=== PATIENT | female | born 1990 | race Two or more races ===

== ENCOUNTER 2025-01-17 05:31 | Inpatient (IN) | payer MEDICAID ==
[~2025-01-17 05:31] MED LIST: Lactated Ringers 1,000 ML IV SCH; Sodium Chloride 0.9% 10 ML Syringe FLUSH PRN; Sodium Chloride 0.9% 10 ML Syringe FLUSH SCH
[2025-01-17] MEDS ORDERED: Oxytocin/0.9 % Sodium Chloride 30 UNIT/500 ML BAG IV SCH ×2 (06:00→08:00)
[2025-01-17 06:06] LABS: BASOPHILS ABSOLUTE AUTO 0.0 K/mm3 (0.0-0.2); BASOPHILS PERCENT AUTO 0.4 % (0.0-1.0); EOSINOPHILS ABSOLUTE AUTO 0.1 K/mm3 (0.0-0.4); EOSINOPHILS PERCENT AUTO 1.4 % (0.0-6.0); IMMATURE GRAN ABSOLUTE AUTO 0.03 K/mm3 (0.00-0.05); IMMATURE GRAN PERCENT AUTO 0.4 % (0.0-0.4); LYMPHOCYTES ABSOLUTE AUTO 2.2 K/mm3 (1.0-4.8); LYMPHOCYTES PERCENT AUTO 27.9 % (24.0-44.0); MEAN PLATELET VOLUME 13.0 fl (9.4-12.3); MONOCYTES ABSOLUTE AUTO 0.5 K/mm3 (0.0-0.8); MONOCYTES PERCENT AUTO 6.4 % (0.0-8.0); NEUTROPHILS ABSOLUTE AUTO 5.0 K/mm3 (1.8-7.7); NEUTROPHILS PERCENT AUTO 63.5 % (41.0-71.0); NRBC ABSOLUTE 0.00 (0.00-0.02); NRBC PERCENT 0.0 % (0.0-0.2); PLATELET COUNT,PLT 114 K/mm3 (150-400); RED BLOOD CELL COUNT 4.03 M/mm3 (4.10-5.30); WHITE BLOOD CELL COUNT,WBC 7.82 K/mm3 (3.9-11.3)
[2025-01-17] MEDS ORDERED: Citric Acid/Sodium Citrate Solution 30 ML Cup PO ONE (06:39)
[2025-01-17] MEDS ORDERED: Lactated Ringers 1,000 ML IV SCH (06:45)
[2025-01-17] MEDS ORDERED: ePHEDrine 50 MG/ML SDV ONE (06:52)
[2025-01-17] MEDS ORDERED: Phenylephrine 1% 10 MG/ML SDV ONE (06:53)
[2025-01-17] MEDS: Citric Acid/Sodium Citrate Solution 30 ML Cup PO ONE (07:22)
[2025-01-17] MEDS ORDERED: Morphine PF 10 MG/10 ML SDV ONE (07:28)
[2025-01-17] MEDS ORDERED: diphenhydrAMINE 50 MG/ML SDV ONE (08:06)
[2025-01-17] MEDS ORDERED: diphenhydrAMINE 50 MG/ML SDV IVPUSH PRN ×2 (08:17→09:37)
[2025-01-17] MEDS ORDERED: fentaNYL 100 MCG/2 ML SDV IVPUSH PRN (08:17)
[2025-01-17] MEDS ORDERED: Ondansetron 4 MG/2 ML SDV IVPUSH PRN (08:17)
[2025-01-17] MEDS ORDERED: Sodium Chloride 0.9% 10 ML Syringe FLUSH SCH (09:00)
[2025-01-17] MEDS ORDERED: ePHEDrine 50 MG/ML SDV IVPUSH PRN (09:37)
[2025-01-17] MEDS ORDERED: Sodium Chloride 0.9% 10 ML Syringe FLUSH PRN (09:37)
[2025-01-17] MEDS ORDERED: Naloxone 0.4 MG/ML SDV IVPUSH PRN (09:37)
[2025-01-17] MEDS: Ketorolac 30 MG/ML SDV IVPUSH SCH (09:57)
[2025-01-17] MEDS ORDERED: Ketorolac 30 MG/ML SDV IVPUSH SCH (14:30)
[2025-01-17] MEDS: Ondansetron 4 MG/2 ML SDV IV PRN (19:57)
[2025-01-18 05:49] LABS: MEAN PLATELET VOLUME 13.3 fl (9.4-12.3); NRBC ABSOLUTE 0.00 (0.00-0.02); NRBC PERCENT 0.0 % (0.0-0.2); PLATELET COUNT,PLT 92 K/mm3 (150-400); RED BLOOD CELL COUNT 3.61 M/mm3 (4.10-5.30); WHITE BLOOD CELL COUNT,WBC 7.78 K/mm3 (3.9-11.3)
[2025-01-18] MEDS ORDERED: Lactated Ringers 1,000 ML IV ONE (07:45)
[2025-01-18] MEDS ORDERED: Oxytocin/0.9 % Sodium Chloride 30 UNIT/500 ML BAG IV ONE (07:45)
== END 2025-01-18 17:30 | disposition home or self-care (01) | DRG 788 ==
LOC: JD.OB 05:31
PROVIDERS: ADMIT Obstetrics & Gynecology; ATTEND Obstetrics & Gynecology
PROC: 4A1HXCZ Monitoring of Products of Conception, Cardiac Rate, External Approach (ICD-10-PCS; 2025-01-17)
PROC: 10D00Z1 Extraction of Products of Conception, Low, Open Approach (ICD-10-PCS; principal; 2025-01-17 07:30)
DX: O34.211 Maternal care for low transverse scar from previous cesarean delivery (principal); Z37.0 Single live birth; O99.62 Diseases of the digestive system complicating childbirth; K21.9 Gastro-esophageal reflux disease without esophagitis; O48.0 Post-term pregnancy; Z3A.40 40 weeks gestation of pregnancy
CPT/HCPCS: 01961; 36415; 59025; 85025; 85027; 86592; 86850; 86900; 86901; 94762; A9270-GY; J0690; J1200; J1885; J2274; J2371; J2405; J2765; J3490; J7120; J7121; J7999

== ENCOUNTER 2025-01-22 21:53 | Emergency (ER) | payer MEDICAID ==
[2025-01-22] MEDS ORDERED: Sodium Chloride 0.9% 10 ML Syringe FLUSH PRN (22:22)
[2025-01-22 22:25] LABS: BASOPHILS ABSOLUTE AUTO 0.0 K/mm3 (0.0-0.2); BASOPHILS PERCENT AUTO 0.4 % (0.0-1.0); EOSINOPHILS ABSOLUTE AUTO 0.2 K/mm3 (0.0-0.4); EOSINOPHILS PERCENT AUTO 2.2 % (0.0-6.0); IMMATURE GRAN ABSOLUTE AUTO 0.05 K/mm3 (0.00-0.05); IMMATURE GRAN PERCENT AUTO 0.7 % (0.0-0.4); LYMPHOCYTES ABSOLUTE AUTO 1.6 K/mm3 (1.0-4.8); LYMPHOCYTES PERCENT AUTO 24.2 % (24.0-44.0); MEAN PLATELET VOLUME 11.5 fl (9.4-12.3); MONOCYTES ABSOLUTE AUTO 0.3 K/mm3 (0.0-0.8); MONOCYTES PERCENT AUTO 4.1 % (0.0-8.0); NEUTROPHILS ABSOLUTE AUTO 4.6 K/mm3 (1.8-7.7); NEUTROPHILS PERCENT AUTO 68.4 % (41.0-71.0); NRBC ABSOLUTE 0.00 (0.00-0.02); NRBC PERCENT 0.0 % (0.0-0.2); PLATELET COUNT,PLT 167 K/mm3 (150-400); RED BLOOD CELL COUNT 3.59 M/mm3 (4.10-5.30); WHITE BLOOD CELL COUNT,WBC 6.79 K/mm3 (3.9-11.3)
[2025-01-22 22:56] LABS: A/G RATIO 0.7 (1-2); ALANINE AMINOTRANSFERASE,ALT 63.0 U/L (14-59); ASPARTATE AMNIOTRANSFERASE,AST 45.0 U/L (15-37); BILIRUBIN TOTAL 0.2 mg/dL (0.2-1.0); BLOOD UREA NITROGEN,BUN 14.0 mg/dL (7-18); CARBON DIOXIDE,CO2 25.0 mEq/L (21-32); CHLORIDE,CL 107.0 mEq/L (98-107); CREATINE KINASE,CK 356.0 U/L (26-192); CREATININE 1.0 mg/dL (0.55-1.02); EST CRCL DRUG DOSING (CG) 58.01 mL/min; ESTIMATED GFR 77.0 mL/min (>60); GLUCOSE RANDOM 99.0 mg/dL (70-99); POTASSIUM,K 4.1 mEq/L (3.5-5.1); PROTEIN TOTAL,TP 6.3 g/dl (6.4-8.2); SODIUM,NA 142.0 mEq/L (136-145); TROPONIN I HIGH SENSITIVITY 5.0 pg/mL (<=51)
[2025-01-22 23:23] LABS: BUPRENORPHINE SCREEN,URINE NEGATIVE (CUTOFF=10); METHADONE SCREEN, URINE NEGATIVE (CUTOFF=200); METHAMPHETAMINES SCREEN, URINE NEGATIVE (CUTOFF=500); OXYCODONE SCREEN,URINE NEGATIVE (CUT0FF=100); THC SCREEN,URINE 20 NG/ML NEGATIVE (CUTOFF=50)
[2025-01-22 23:45] LABS: AMPHETAMINES SCREEN, URINE NEGATIVE (CUTOFF=500)
[2025-01-23 00:01] LABS: APPEARANCE,URINE CLEAR (Clear); GLUCOSE,URINE NEGATIVE (Negative); OCCULT BLOOD,URINE 3+ (Negative)
[2025-01-23 00:14] LABS: EPITHELIAL CELLS,URINE 0-5 /hpf (0-5)
[2025-01-23] MEDS: Iopamidol 755 Mg/ML 100 ML Bottle IVPUSH ONE (00:36)
[2025-01-23] MEDS: Sodium Chloride 0.9% 10 ML Syringe FLUSH ONE (00:37)
== END 2025-01-23 01:37 | disposition home or self-care (01) ==
LOC: JD.ED 21:53
DX: O98.53 Other viral diseases complicating the puerperium (principal); B34.9 Viral infection, unspecified; O16.5 Unspecified maternal hypertension, complicating the puerperium; Z79.899 Other long term (current) drug therapy
CPT/HCPCS: 36415; 71045; 71275; 80053; 80306; 81001; 82550; 83690; 83735; 83880; 84484; 85025; 85379; 93005; 99285; Q9967; 93010; 99283